=== PATIENT | female | born 1955 | race Caucasian/White ===

== ENCOUNTER 2020-09-01 12:02 | Inpatient (IN) | payer OTHER, SELFPAY ==
--- NOTE | 2020-09-01 13:11 | RAD ---
PORTABLE CHEST: Date: 09/01/2020 HISTORY: Chest pain. FINDINGS: Lung hadley appear clear. No infiltrate or vascular congestion. Heart and mediastinum unremarkable. There appears to be external artifact overlying the left upper lung and scapula. IMPRESSION: No acute process identified. POS: [facility]
[2020-09-01 13:43] LABS: #Eosinphils 0.2 thou/uL (0.0-0.7); #Lymphocytes 2.2 thou/uL (1.20-3.40); #Monocytes 0.6 thou/uL (0.11-0.59); #Neutrophils 5.9 thou/uL (1.40-6.50); %Basophils 0.5 % (0.0-1.0); %Eosinophils 2.8 % (0.0-10.0); %Lymphocytes 24.7 % (21.0-51.0); %Monocytes 6.3 % (0.0-10.0); %Neutrophils 65.7 % (42.0-75.0); Hemoglobin 12.3 g/dL (12.0-16.0); Mean Corpuscular HGB CONC 32.5 g/dL (32.0-36.0); Mean Corpuscular Hemoglobin 28.5 pg (27.0-31.0); Mean Corpuscular Volume 87.7 fL (78.0-98.0); Mean Platelet Volume 8.5 fL (7.4-10.4); Platelet Count 273 thou/uL (130-400); RBC Distribution Width 13.2 % (11.5-14.5); White Blood Cell (WBC) Count 8.9 thou/uL (4.8-10.8)
[2020-09-01 14:00] LABS: ALT (SGPT) 14 U/L (8-55); AST (SGOT) 15 U/L (5-34); Albumin 3.8 g/dL (3.4-4.8); Alkaline Phosphatase 121 U/L (40-110); Anion Gap 11 mmol/L (10-20); BUN (Urea Nitrogen) 15 mg/dL (9.8-20.1); Bilirubin, Total 0.4 mg/dL (0.2-1.2); CK (CPK) 51 U/L (29-168); Calc. Creatinine Clearance 0 mL/min (70-130); Calcium 8.9 mg/dL (7.8-10.44); Carbon Dioxide 31 mmol/L (23-31); Chloride 103 mmol/L (98-107); Estimated GFR-MDRD 68; Globulin 3.6 g/dL (2.4-3.5); Glucose 168 mg/dL (80-115); Lipase 25 U/L (8-78); Potassium 3.6 mmol/L (3.5-5.1); Protein, Total 7.4 g/dL (6.0-8.3); Sodium 141 mmol/L (136-145)
[2020-09-01] MEDS ORDERED: Iopamidol-370 76% 500 ML 1 ML ONE (14:39)
--- NOTE | 2020-09-01 15:29 | CT ---
CTA CHEST WITH CONTRAST: Date: 09/01/2020 Axial tomograms obtained following angio protocol with multiplanar reconstruction and 3D postprocessi ng. INDICATION: Chest pain. Assess for pulmonary embolus. FINDINGS: Pulmonary arteries show adequate enhancement. No evidence of pulmonary embolus. Thoracic aorta i8s un remarkable with no evidence of dissection or aneurysm. Mediastinum unremarkable with no evidence of a denopathy. Nonspecific mediastinal and hilar lymph nodes are noted. The lung hadley appear clear. No infiltrate or effusion. Osseous structures unremarkable. Images through the upper abdomen partially image the gallbladder and there is low density and heterog eneity within the visualized gallbladder lumen suggesting gallstones. Consider evaluation with gallbl adder ultrasound. IMPRESSION: 1. No evidence of pulmonary embolus. 2. No acute lung process. 3. Small fixed sliding diaphragmatic hernia. 4. Question gallstones. Correlate with gallbladder ultrasound. POS: [facility]
[2020-09-01] MEDS ORDERED: Nitroglycerin 0.4 MG TAB (25 Tab Bottle) SL PRN (18:16)
--- NOTE | 2020-09-01 18:31 | PDOC.HHP ---
Hospitalist HPI - History of Present Illness Chest pain History of Present Illness: Patient is a 64-year-old female who reports that she has had frequent muscle cramps all over her body including occasionally in her chest. She has been using some Epson salt in her bath a couple times a week and that is helped. She reports about 10 days ago she was experiencing substantial stress. She is the oldest of 9 children. She has had 6 family members within this year that who have had cancer. 2 of them had . In addition to that one of her sisters was attending one of the funerals and had a heart attack and she about 10 days later. Her son-in-law is one of the recent diagnoses of cancer. He r ecently had to be rushed to the hospital. In the midst of all the stress the patient was here in town and experienced a crushing type of central chest pain. She called her who called 911. While she waited her symptoms spontaneously and completely resolved in 8 to 10 minutes. With that episode she did have fairly severe shortness of breath but that completely resolved as well. They canceled the ambulance but she stayed around town for about 3 more hours to ensure she was doing okay and when she was convinced she was she will return home since then she has been having some intermittent chest pain that last for an hour or 2 she has occasional pain in her left arm and occasionally in the left neck area. They do not always occur at the same time. Now she feels a little bit winded at times but not specifically short of breath intermittently. She feels mildly lightheaded she denies any nausea or sweats. She reported today because she is having more anxiety because of a strong family history of heart disease. She has had 3 siblings of the 9 who have of myocardial infarction. Her children are concerned about this and that is actually adding to her stress even more. Hospitalist ROS - Review of Systems Constitutional: denies: fever, chills Respiratory: reports: SOB with excertion. denies: cough, shortness of breath Cardiovascular: denies: chest pain Gastrointestinal: denies: nausea, vomiting, abdominal pain, diarrhea, con stipation All other systems reviewed; all pertinent +/- noted in HPI/Subj - Medication Medications: None Hospitalist History - Past Medical History Cardiac: reports: HTN (Not treated and not formally diagnosed.) - Past Surgical History Past Surgical History: reports: Appendectomy (Had exploratory laparotomy while she was due to abdominal pain. There was no finding so they did an appendectomy.), (X3) - Family History Family History: reports: cancer (Mother) - Social History Smoking Status: Never smoker Alcohol: reports: None Drugs: reports: none - Exam General Appearance: NAD, awake alert General - other findings: Obese Heart: RRR, no murmur, no gallops, no rubs, normal peripheral pulses Respiratory: CTAB, no wheezes, no rales, no ronchi, normal chest expansion, no tachypnea, normal percussion Gastrointestinal: soft, non-tender, non-distended, normal bowel sounds, no palpable masses, no hepatomegaly, no splenomegaly, no bruit Extremities: no cyanosis, no clubbing, no edema Skin: normal turgor, no lesions, no rashes Neurological: cranial nerve grossly intact, normal sensation to touch, no weakness, no focal deficits, no new deficit Musculoskeletal: normal tone, normal strength, no muscle wasting Psychiatric: normal affect, normal behavior, A&O x 3 Hospitalist Results - Labs Result Diagrams: 09/01/20 13:19 09/01/20 13:19 Lab results: WBC 8.9 thou/uL (4.8-10.8) 09/01/20 13:19 Hgb 12.3 g/dL (12.0-16.0) 09/01/20 13:19 Hct 37.7 % (36.0-47.0) 09/01/20 13:19 MCV 87.7 fL (78.0-98.0) 09/01/20 13:19 Plt Count 273 thou/uL (130-400) 09/01/20 13:19 Neutrophils % 65.7 % (42.0-75.0) 09/01/20 13:19 Sodium 141 mmol/L (136-145) 09/01/20 13:19 Potassium 3.6 mmol/L (3.5-5.1) 09/01/20 13:19 Chloride 103 mmol/L (98-107) 09/01/20 13:19 Carbon Dioxide 31 mmol/L (23-31) 09/01/20 13:19 BUN 15 mg/dL (9.8-20.1) 09/01/20 13:19 Creatinine 0.84 mg/dL (0.6-1.1) 09/01/20 13:19 Glucose 168 mg/dL (80-115) H 09/01/20 13:19 Calcium 8.9 mg/dL (7.8-10.44) 09/01/20 13:19 Total Bilirubin 0.4 mg/dL (0.2-1.2) 09/01/20 13:19 AST 15 U/L (5-34) 09/01/20 13:19 ALT 14 U/L (8-55) 09/01/20 13:19 Alkaline Phosphatase 121 U/L (40-110) H 09/01/20 13:19 Creatine Kinase 51 U/L (29-168) 09/01/20 13:19 Troponin I Less than 0.010 ng/mL (< 0.028) 09/01/20 13:19 Serum Total Protein 7.4 g/dL (6.0-8.3) 09/01/20 13:19 Albumin 3.8 g/dL (3.4-4.8) 09/01/20 13:19 Lipase 25 U/L (8-78) 09/01/20 13:19 - EKG Interpretation EK, with no ectopics, Conduction normal, ST segments normal, [place] normal, Nonspecific T wave changes. - Radiology Interpretation CT scan - chest Status: report reviewed by me Additional Comment: IMPRESSION: 1. No evidence of pulmonary embolus. 2. No acute lung process. 3. Small fixed sliding diaphragmatic hernia. 4. Question gallstones. Correlate with gallbladder ultrasound. Hospitalist H&P A/P - Problem (1) Chest pain Code(s): R07.9 - CHEST PAIN, UNSPECIFIED Status: Acute (2) Gallstones Code(s): K80.20 - CALCULUS OF GALLBLADDER W/O CHOLECYSTITIS W/O OBSTRUCTION Status: Acute (3) Hypertension Code(s): I10 - ESSENTIAL (PRIMARY) HYPERTENSION Status: Acute - Plan Plan: Chest pain: Patient has family history of significant coronary artery disease. EKG is nonischemic but nonspecific. Initial work-up otherwise negative. Placed in observation. Telemetry. Serial troponins. Nuclear medicine stress test in the morning assuming her troponins remain negative. Possible this could be related to gallstones however the most important work-up needs to be the cardiac initially. If that is negative may consider gallbladder ultrasound. Stones: Likely benign. CT did not show significant evidence of obstruction or inflammation. Could likely have outpatient work-up if her stress test is negative. Hypertension: Patient believes her blood pressures been routinely high but she has not been formally diagnosed and takes no medicines. We will continue to monitor while she is here and initiate medicines as needed.
[2020-09-01 19:33] LABS: Troponin I Less than 0.010 ng/mL (< 0.028)
[2020-09-01 23:51] LABS: Troponin I Less than 0.010 ng/mL (< 0.028)
[2020-09-02 04:28] LABS: SARS-CoV-2 MS2 Positive; SARS-CoV-2 N Gene Negative; SARS-CoV-2 S Gene Negative; SARS-CoV-2 by NAA Not Detected (NotDetected); SARS-CoV-2 orf1ab Negative
[2020-09-02 04:56] LABS: Cardiac Risk 3.2 (Less than 4.5)
[2020-09-02] MEDS: Aspirin 325 mg Enteric Coated Tablet PO SCH (07:44)
[2020-09-02] MEDS ORDERED: FLU VACC QS2020-21(6MOS UP)/PF 60 MCG/0.5 ML SYRINGE IM ONE (09:00)
[2020-09-02 10:16] VITALS: BMI 41.5
--- NOTE | 2020-09-02 12:07 | NM ---
Exam: Nuclear medicine cardiac stress with EF and wall motion HISTORY: Chest pain. TECHNIQUE: Patient was administered 28.80 mCi of technetium 99m sestamibi. Stress only images were pe rformed FINDINGS: Homogeneous distribution of the radiotracer left ventricle End-diastolic volume is 86 mL End-systolic volume is 22 mL Cardiac gating: Normal wall motion and thickening. 74% ejection fraction IMPRESSION: 74% ejection fraction. Homogeneous distribution of the radiotracer in the left ventricle.
--- NOTE | 2020-09-02 15:08 | PDOC.HOSPP ---
- Objective Vital Signs & Weight: Vital Signs (12 hours) Temp Pulse Resp BP BP Pulse Ox 09/02/20 12:17 97.7 F 77 16 127/58 L 98 09/02/20 07:36 97.9 F 70 16 116/56 L 96 09/02/20 04:00 97.6 F 75 18 140/60 99 Weight Admit Weight 265 lb Weight 265 lb I&O: 09/01/20 09/02/20 09/03/20 06:59 06:59 06:59 Intake Total 880 Output Total 500 Balance 380 Result Diagrams: 09/01/20 13:19 09/01/20 13:19 Hospitalist ROS - Medication Medications: Active Medications Generic Name Dose Route Start Last Admin Trade Name Freq PRN Reason Stop Dose Admin Aspirin 325 mg 09/02/20 09:00 09/02/20 07:44 Aspirin 325 Mg Enteric Coated Tablet PO 325 mg DAILY LILIANA Administration Hosp A/P - Plan ) Chest pain Code(s): R07.9 - CHEST PAIN, UNSPECIFIED Status: Acute (2) Gallstones Code(s): K80.20 - CALCULUS OF GALLBLADDER W/O CHOLECYSTITIS W/O OBSTRUCTION Status: Acute (3) Hypertension Code(s): I10 - ESSENTIAL (PRIMARY) HYPERTENSION Status: Acute -Troponin x2 - Her LDL 102 Nuclear medicine stress test negative. -Patient has a family history of vascular disease and her sister recently at the age of 40 with FL. -As patient has ongoing chest pain, further evaluation is required. -We will request a cardiology evaluation. Metabolic syndrome -Patient with obesity and the LDL of 102 -We will check A1c TSH, fasting lipid panel and start her on a low-dose statin and adjust a based on the LDL lipid level CT chest negative for PE however shows diaphragmatic hiatal hernia -Symptomatic management with the PPI. Elevated alkaline phosphatase with normal transaminases - her chest pain is bilateral underneath her breast and may have related to diaphragmatic hernia versus abnormal presentation of cholecystitis as her alkaline phosphatase is elevated. -We will get a right upper quadrant gallbladder ultrasound. Obesity -Check A1c and TSH given her obesity
[2020-09-02] MEDS: traMADol HCl 50 MG TAB PO PRN (22:37)
[2020-09-02] MEDS: Sodium Chloride 0.9% 1,000 ML IV SCH (22:40)
--- NOTE | 2020-09-03 07:35 | ULT ---
Exam: Right upper quadrant ultrasound: HISTORY: Abdominal pain COMPARISON: None FINDINGS: Visualized liver:Coarse heterogeneous liver echogenicity evidence for nonspecific hepatic parenchymal process. Gallbladder:Multiple gallstones without overt pericholecystic fluid. Common bile duct:Within normal limits. The visualized pancreas and right kidney are unremarkable. No evidence for abscess or abnormal fluid collection in the right upper quadrant. IMPRESSION: Multiple gallstones. Coarse heterogeneous liver echogenicity.
[2020-09-03] MEDS: Aspirin 325 mg Enteric Coated Tablet PO SCH (08:12)
--- NOTE | 2020-09-03 09:39 | CON ---
DATE OF CONSULTATION: 09/02/2020 REASON FOR CONSULTATION: Chest pain, negative cardiac stress test. HISTORY OF PRESENT ILLNESS: Ms. Mary Garsia is a very pleasant 64-year-old female presenting with chest pain. The patient's history is somewhat atypical. The patient has been under a lot of stress lately. Apparently, she has had multiple deaths in the family this year. The patient comes in with chest pain across the anterior chest. The patient has negative EKG, negative cardiac enzymes. came back negative. The patient on admission was found to have a . She does have some chronic off and on but more of like heartburn or indigestion. There is no . The patient is a very healthy female. She has no history of hypertension, diabetes, heart disease, lung disease. There is no history of any chronic lung disease. The patient has had what she calls a anthony horse or . This has been going on for a while. Usually bathtub with some . The lower chest and almost like there is somebody crushing her, . She had no dyspnea. The patient had no chest pain on exertion. Also, chest pain does not occur when she is eating. She is very active and does get around doing a lot of things. She never had any chest pain history that she fell down a couple of months ago on a concrete floor and landed on her back. She was having soreness and pain for several days afterwards. Her bowel moves regularly. There is no history of any hematochezia . She had ALLERGIES: SOCIAL HISTORY: She does not drink alcohol. MEDICAL ILLNESSES: Obesity, PAST SURGICAL HISTORY: Previous appendectomy when she was . Chest pain and abdominal pain and had laparotomy and had incidental appendectomy. FAMILY HISTORY: of heart attack recently. , breast cancer. breast cancer. One brother had colon cancer. Another brother had heart attack diagnosed with cancer lately. MEDICATIONS: Medication list reviewed. REVIEW OF SYSTEMS: A 10-point system review: CONSTITUTIONAL: No history of any weight loss. No fever or chills. No history of any poor exercise tolerance. HEENT: No chronic headache. No syncope. No TIA. No diplopia. No impaired vision. No hearing loss. No nose bleed. No rhinorrhea. No sore throat or dysphagia. NECK: No stiffness. HEART: Chest pain. LUNGS: No chronic coughing . GI: No abdominal pain. No nausea or vomiting. Bowel movement . Does have occasional acid reflux and some heartburn. No dysphagia. PHYSICAL EXAMINATION: GENERAL: She appears . She is a good historian. She is awake, alert, oriented VITAL SIGNS: Afebrile. NECK: CARDIOVASCULAR: CHEST: Lungs are clear to auscultation. ABDOMEN: Soft and nondistended. Minimally tender right up in the epigastric area. There is no rebound or guarding. No organomegaly. EXTREMITIES: LABORATORY DATA: . Chemistry panel is pretty normal. Glucose is . AST 15, ALT 14. Albumin 3.8. Triglycerides 97, CLINICAL IMPRESSION: 1. A 64-year-old obese, female with chest pain. The pain is kind of more chronic than acute. Her cardiac workup is negative. Cardiology consultation is pending. She does have occasional . 2. Gallstones on CAT scan, probably .. 3. . RECOMMENDATIONS: 1. Will await cardiac input. . Job ID: [id number]
[2020-09-03 13:54] LABS: Hemoglobin A1c 6.4 % (4.0-6.0)
[2020-09-03 14:00] LABS: ALT (SGPT) 13 U/L (8-55); AST (SGOT) 14 U/L (5-34); Albumin 3.7 g/dL (3.4-4.8); Alkaline Phosphatase 111 U/L (40-110); Bilirubin, Direct 0.2 mg/dL (0.1-0.3); Bilirubin, Total 0.4 mg/dL (0.2-1.2); Protein, Total 7.4 g/dL (6.0-8.3)
--- NOTE | 2020-09-03 14:00 | PRG ---
DATE OF SERVICE: 09/03/2020 SUBJECTIVE: This is a 64-year-old female, hospitalized with chest pain and negative cardiac workup. She had a chemical stress test which came back negative. She has family history of coronary artery disease. A cardiology evaluation is pending. She was seen by me because of chest pain with negative cardiac workup. The patient denies abdominal pain, nausea, or vomiting. Her pain is predominantly across the lower chest like a heaviness or like a squeezing of chest. She had abdominal sonogram which showed gallstone; however, she has no right upper quadrant pain or nausea or vomiting. Today, she is feeling better. PHYSICAL EXAMINATION: GENERAL: She is obese, appears comfortable, in no distress. VITAL SIGNS: Stable. Temperature 97.8 degrees Fahrenheit, pulse is 71, blood pressure is 156/69. CARDIOVASCULAR SYSTEM: Normal heart sounds. LUNGS: Clear to auscultation. ABDOMEN: Soft. Abdomen is nondistended. Abdomen is mildly tender over the epigastric area. No rebound or guarding. CLINICAL IMPRESSION: 1. Chest pain, etiology unclear. Negative cardiac stress testing. 2. Obesity. 3. Gallstones, most likely asymptomatic as she has no abdominal pain, nausea, or vomiting. RECOMMENDATIONS: 1. Await cardiology input. 2. May consider EGD. Job ID: [id number]
[2020-09-03 14:01] LABS: Cardiac Risk 3.3 (Less than 4.5)
--- NOTE | 2020-09-03 14:08 | ULT ---
Venous duplex sonogram bilateral lower extremity HISTORY: Bilateral leg pain and edema. FINDINGS: Each common femoral vein and greater saphenous junction were evaluated along with each femo ral, deep femoral, popliteal, and posterior tibial vein. There is good color and spectral Doppler flow, compression, and augmentation. IMPRESSION : Normal exam.
--- NOTE | 2020-09-03 17:29 | EKG ---
Test Reason : Blood Pressure : / mmHG Vent. Rate : 088 BPM Atrial Rate : 088 BPM P-R Int : 152 ms QRS Dur : 072 ms QT Int : 362 ms P-R-T Axes : 050 015 051 degrees QTc Int : 438 ms Normal sinus rhythm Cannot rule out Anterior infarct , age undetermined Abnormal ECG Confirmed by FERNANDA Romero, LENO ([id number]), staff editor KATIE YORK ([id number]) on 09/03/2020 5:29:39 PM Referred By: Confirmed By:LENO MICHAEL M.D.
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
[2020-09-03] MEDS ORDERED: Calcium Carbonate 500 MG ChewTAB PO PRN (19:21)
--- NOTE | 2020-09-03 20:01 | CON ---
DATE OF CONSULTATION: 09/03/2020 REASON FOR CONSULTATION: Chest pain and pressure. HISTORY OF PRESENT ILLNESS: Ms. Mary Garsia is a 64-year-old woman. The patient has been having chest pain and pressure for about 2 to 3 weeks. She had a severe episode over a week ago. It was in the middle of her chest, went all the way across her chest, feeling things were pressing in on her, gradually eased up, and she felt very fatigued and weak after that. She has been having these recurrent episodes similar to this. She has had a strong family history of heart disease. She has had multiple younger siblings with heart disease. PAST HISTORY: She has a history of "borderline blood sugars." She has not had a history of diabetes. She has not been hypertensive. No tobacco. REVIEW OF SYSTEMS: CONSTITUTIONAL: No significant weight gain or loss. VISION: No changes. HEARING: No changes. PULMONARY: No cough or wheezing. GASTROINTESTINAL: No nausea, vomiting, or diarrhea. SKIN: No rashes. NEUROLOGIC: No unilateral weakness or numbness. PSYCHIATRIC: No unusual depression or anxiety. PHYSICAL EXAMINATION: GENERAL: This is a pleasant 64-year-old woman, in no distress. VITAL SIGNS: Blood pressure 140/60, pulse 70. LUNGS: Clear. CARDIAC: Normal S1, normal S2. ABDOMEN: Soft, nontender. She is very obese. EXTREMITIES: No clubbing or cyanosis. There is no edema. Her BMI is 41.5. LABORATORY DATA: Her troponin levels are negative. LDL cholesterol is 99. EKG unremarkable. Stress test was unremarkable. ASSESSMENT: Chest pain and pressure, very suspicious for angina, even despite normal stress test, the patient remains very concerned, and as her symptoms are very suspicious for angina, we discussed options including cardiac catheterization is being the most definitive test. Discussed risk of stroke, heart attack, iodine allergy, loss of blood supply to leg or kidney, stent thrombosis, stent restenosis, emergency surgery. The patient understands and wishes to proceed. We will arrange for this on Saturday. Job ID: [id number]
[2020-09-03] MEDS: traMADol HCl 50 MG TAB PO PRN (21:49)
[2020-09-04] MEDS: Sodium Chloride 0.9% 1,000 ML IV SCH (01:55)
[2020-09-04] MEDS: Aspirin 325 mg Enteric Coated Tablet PO SCH (07:59)
[2020-09-04 10:01] LABS: ALT (SGPT) 14 U/L (8-55); AST (SGOT) 16 U/L (5-34); Albumin 3.7 g/dL (3.4-4.8); Alkaline Phosphatase 118 U/L (40-110); Bilirubin, Direct 0.2 mg/dL (0.1-0.3); Bilirubin, Total 0.5 mg/dL (0.2-1.2); Protein, Total 7.3 g/dL (6.0-8.3)
--- NOTE | 2020-09-04 15:18 | PDOC.HOSPP ---
- Subjective Encounter Date: 09/04/20 Encounter Time: 11:30 Subjective: F/u: chest pain/abdominal pain The patient still has intermittent chest pain in the middle of her chest. She also complains of pain down both arms. She reports occasional pain on the left side of her neck . She says she did not want to take nitroglycerin or any pepcid even though it was offered. SHe reports feeling a lump in her breast bone. She denies abdominal pain, nausea and vomiting The patient reports that she fell a few weeks ago on her back and was unable to get up for several hours. She reports history of ruptured discs in her back in the past. She is ambulating without pain - Objective Vital Signs & Weight: Vital Signs (12 hours) Temp Pulse Resp BP Pulse Ox 09/04/20 14:46 71 137/60 94 L 09/04/20 12:00 97.8 F 69 18 137/62 94 L 09/04/20 07:15 97.2 F L 66 16 145/63 H 94 L 09/04/20 04:59 71 16 129/61 94 L Weight Admit Weight 265 lb Weight 265 lb I&O: 09/03/20 09/04/20 09/05/20 06:59 06:59 06:59 Intake Total 1380 3200 Output Total 400 900 Balance 980 2300 Result Diagrams: 09/01/20 13:19 09/01/20 13:19 Hospitalist ROS - Review of Systems Constitutional: denies: fever, chills - Medication Medications: Active Medications Generic Name Dose Route Start Last Admin Trade Name Freq PRN Reason Stop Dose Admin Aspirin 325 mg 09/02/20 09:00 09/04/20 07:59 Aspirin 325 Mg Enteric Coated Tablet PO 325 mg DAILY LILIANA Administration Sodium Chloride 1,000 mls @ 45 mls/hr 09/02/20 22:00 09/04/20 01:55 Normal Saline 0.9% IV 09/05/20 05:59 1,000 mls .[id number] LILIANA Administration Nitroglycerin 0.4 mg 09/01/20 18:16 09/04/20 14:39 Nitroglycerin 0.4 Mg Tab (25 Tab Bottle) SL 1 tab Q5MIN PRN Administration Chest Pain Pantoprazole Sodium 40 mg 09/03/20 09:00 09/04/20 07:59 Pantoprazole 40 Mg Tab PO 40 mg DAILY LILIANA Administration Tramadol HCl 50 mg 09/02/20 19:54 09/03/20 21:49 Tramadol Hcl 50 Mg Tab PO 50 mg Q6H PRN Administration Pain - Exam General Appearance: NAD, awake alert Eye: anicteric sclera ENT: normocephalic atraumatic, no oropharyngeal lesions Neck: no JVD Heart: RRR, no murmur, no gallops, no rubs Respiratory: CTAB, no wheezes, no rales, no ronchi Gastrointestinal: soft, non-tender, non-distended, normal bowel sounds Gastrointestinal - other findings: mild lump in beneath breast bone, unclear if hernia? Extremities: no cyanosis, no clubbing, no edema Skin: normal turgor, no lesions, no rashes Neurological: cranial nerve grossly intact, normal sensation to touch, no weakness Musculoskeletal - other findings: patient denies pain while lifting up his arms Psychiatric: normal affect, normal behavior, A&O x 3 Hosp A/P - Plan CTA: no PE. Sliding diaphragmatic hernia. Gallstones This is a 64 year old female who presented with chest pain Chest pain - trop negative x 3. Nuclear stress test negative - cardiology was consulted and will perform a cath tomorrow - continue aspirin, statin, nitro prn. Will add metoprolol as well Neck pain and arm pain - angina vs radiculopathy - Will order MRI cervical and thoracic spine given history of ruptured discs in the past and recent fall on her back Abdominal pain - resolving - US showed gallstones. ALP elevated, slightly trending up - GI plans to do endoscopy once cardiology clears her . Will increase protonix to 40 mg bid Borderline diabetes - A1C 6.4. Encourage weight loss GERD - continue tums prn
[2020-09-04] MEDS ORDERED: Metoprolol Tartrate 25 MG TAB PO SCH (15:30)
[2020-09-04] MEDS ORDERED: Communication Order-Pharmacy FS SCH (18:00)
[2020-09-04] MEDS ORDERED: Atorvastatin Calcium 20 MG TAB PO SCH (21:00)
[2020-09-04] MEDS: Metoprolol Tartrate 25 MG TAB PO SCH (21:54)
[2020-09-05] MEDS: Sodium Chloride 0.9% 1,000 ML IV SCH ×3 (00:48→17:12)
[2020-09-05] MEDS: traMADol HCl 50 MG TAB PO PRN (01:31)
[2020-09-05] MEDS: Metoprolol Tartrate 25 MG TAB PO SCH ×2 (05:34→21:02)
[2020-09-05] MEDS: Aspirin 325 mg Enteric Coated Tablet PO SCH (05:34)
[2020-09-05] MEDS ORDERED: Diazepam 5 MG TAB PO SCH (06:00)
[2020-09-05] MEDS ORDERED: Heparin 10,000 UNITS/ 10 ML VIAL ONE (07:53)
[2020-09-05] MEDS ORDERED: Midazolam HCl 2 mg/2 ml Vial ONE (08:59)
[2020-09-05] MEDS ORDERED: Fentanyl 100 MCG/2 ML VIAL ONE (08:59)
[2020-09-05] MEDS ORDERED: Sodium Chloride 0.9% 200 ML IV PRN (09:45)
[2020-09-05] MEDS ORDERED: Iopamidol 370 76% 100 ML VIAL ONE (09:46)
[2020-09-05 12:35] LABS: ALT (SGPT) 17 U/L (8-55); AST (SGOT) 17 U/L (5-34); Albumin 3.6 g/dL (3.4-4.8); Alkaline Phosphatase 117 U/L (40-110); Bilirubin, Direct 0.2 mg/dL (0.1-0.3); Bilirubin, Total 0.4 mg/dL (0.2-1.2); Protein, Total 7.1 g/dL (6.0-8.3)
--- NOTE | 2020-09-05 15:42 | PRG ---
DATE OF SERVICE: 09/05/2020 Ms. Garsia underwent cardiac catheterization today. She had about 30% plaque in her LAD, otherwise normal. This is not the etiology of her chest pain. The patient has been advised to take a statin, Crestor 20 mg a day, aspirin 81 mg a day. From a cardiac standpoint, she can be released home. Job ID: [id number]
--- NOTE | 2020-09-05 16:29 | MRI ---
MRI cervical spine noncontrast: 09/05/2020 HISTORY: 64-year-old female with cervical radiculopathy after fall COMPARISON: No prior MRI or CT of C-spine available. FINDINGS: All images are degraded by patient motion, some sequences worse than others. Cervical spinal cord is normal in size. No evidence of intramedullary hemorrhage on the gradient echo axial sequence. Difficult to evaluate for intramedullary edema or other intramedullary signal abnormality because of the motion artifact. Vertebral body heights are maintained. Difficult to evaluate for subtle bone marrow signal abnormality including bone contusion because of the motion degradation of images. Mild disc space narrowing at C6-7. No high-grade disc space narrowing at any level. C1-2: No central stenosis. C2-3: Moderate to severe left facet DJD. No central or neural foraminal stenosis. C3-4: Moderate to severe right and mild to moderate left facet DJD. No central spinal canal stenosis. Small bilateral uncinate process osteophytes. There is right neural foraminal stenosis, the degree to which is difficult to ascertain, but it may be moderate or severe. No high-grade left neural hernan inal stenosis. C4-5: High-grade right facet DJD. Mild disc bulge or broad-based disc protrusion. Mild to moderate ce ntral spinal canal stenosis. Small right and moderate size left uncinate process osteophytes. Bilateral neural foraminal stenosis, mild to moderate. C5-6: High-grade right facet DJD. Normal left facet joint. Moderate size bilateral uncinate process o steophytes. Right neural foraminal stenosis is probably severe. Left neural foraminal stenosis is probably mild to moderate. Furthermore, there is a central, left paracentral, and left lateral focal disc herniation which indents the left anterior surface of the spinal cord and probably impinges on the left C6 nerve root. Moderate central spinal canal stenosis. C6-7: Mild disc bulge. Normal facet joints. Moderate to large bilateral uncinate process osteophytes, left worse than right, resulting in moderate right and severe left neural foraminal stenosis. Moderate central spinal canal stenosis. C7-T1: Moderate left facet DJD. Moderate to severe bilateral neural foraminal stenosis. Mild central spinal canal stenosis. IMPRESSION: 1.) Suboptimal study because of patient motion 2) Cervical spondylosis consisting of multiple levels of high-grade right sided facet osteoarthrosis. 3) multiple levels of high-grade neural foraminal stenosis bilaterally. 4) at C5-6, there is a left-sided disc herniation which probably impinges on the left C6 nerve root.
--- NOTE | 2020-09-05 16:44 | MRI ---
EXAM: MRI Thoracic Spine WO Con PROVIDED CLINICAL HISTORY: Back pain post fall on back. COMPARISON: None FINDINGS: There is mild right convex curvature of the thoracic spine. Spinal cord is normal in signal intensity. Minimal disc bulge is present at the T4-5 level which does result in slight flattening of the anterio r aspect of the spinal cord. No additional significant intradural or extra dural defect is identified. Spinal canal is otherwise patent throughout the thoracic spine. There is no high-grade ne ural foraminal narrowing present. Paravertebral soft tissues have a normal appearance. Normal signal intensity is demonstrated in the b one marrow. There is no vertebral body height loss or evidence of edema within the vertebral bodies on the fluid sensitive sequence. IMPRESSION: 1. Mild degenerative changes in the thoracic spine at the T4-5 level. There is no high-grade central canal or neural foraminal narrowing at any level of the thoracic spine. 2. Mild right convex scoliosis thoracic spine.
[2020-09-05] MEDS ORDERED: Gabapentin 100 MG CAP PO PRN (17:13)
--- NOTE | 2020-09-05 17:14 | PDOC.HOSPP ---
- Subjective Encounter Date: 09/05/20 Encounter Time: 09:00 Subjective: F/U; chest and abdominal pain The patient continues to have intermittent chest pain. Cardiac cath today showed no significant abnormalities. Patient denies abdominal pain, nausea or vomiting. She is very drowsy from receiving fentanyl and Versed from her cath. She also stated she has constant pain in her right arm today but her left arm is slightly better. She had not had the MRI yet when I saw her - Objective Vital Signs & Weight: Vital Signs (12 hours) Temp Pulse Resp BP BP Pulse Ox 09/05/20 15:15 97.7 F 76 16 123/62 98 09/05/20 11:29 98.4 F 69 18 128/60 97 09/05/20 07:35 97.8 F 67 16 141/61 H 94 L Weight Admit Weight 265 lb Weight 265 lb I&O: 09/04/20 09/05/20 09/06/20 06:59 06:59 06:59 Intake Total 3200 1270 Output Total 900 1000 Balance 2300 270 Result Diagrams: 09/01/20 13:19 09/01/20 13:19 Hospitalist ROS - Review of Systems Constitutional: denies: fever, chills - Medication Medications: Active Medications Generic Name Dose Route Start Last Admin Trade Name Freq PRN Reason Stop Dose Admin Metoprolol Tartrate 12.5 mg 09/04/20 21:00 09/05/20 05:34 Metoprolol Tartrate 25 Mg Tab PO 12.5 mg BID LILIANA Administration Nitroglycerin 0.4 mg 09/01/20 18:16 09/04/20 14:39 Nitroglycerin 0.4 Mg Tab (25 Tab Bottle) SL 1 tab Q5MIN PRN Administration Chest Pain Pantoprazole Sodium 40 mg 09/04/20 21:00 09/05/20 05:35 Pantoprazole 40 Mg Tab PO 40 mg BID LILIANA Administration Tramadol HCl 50 mg 09/02/20 19:54 09/05/20 01:31 Tramadol Hcl 50 Mg Tab PO 50 mg Q6H PRN Administration Pain - Exam General Appearance: NAD, awake alert Eye: PERRL, anicteric sclera ENT: normocephalic atraumatic, no oropharyngeal lesions Neck: no JVD Heart: RRR, no murmur, no gallops, no rubs Respiratory: CTAB, no wheezes, no rales, no ronchi Gastrointestinal: soft, non-tender, non-distended, normal bowel sounds Extremities: no cyanosis, no clubbing, no edema Skin: normal turgor, no lesions, no rashes Neurological: cranial nerve grossly intact, normal sensation to touch, no weakness Musculoskeletal: normal tone, normal strength, no muscle wasting Hosp A/P - Plan CTA: no PE. Sliding diaphragmatic hernia. Gallstones MRI cervical spine: Multiple levels of high-grade right-sided facet osteoarthrosis. High-grade neuroforaminal stenosis bilaterally. Left-sided disc herniation impinging on the left C6 nerve root MRI thoracic spine: Mild degenerative changes in thoracic spine T4-T5 level This is a 64 year old female who presented with chest pain Chest pain - possibly secondary to GERD? - cath showed insignificant CAD today , 20% proximal LAD and 10% RCA. - trop negative x 3. Nuclear stress test negative. Continue aspirin and statin. Continue protonix 40 mg po bid Acute encephalopathy - likely from sedation - will continue to monitor , and re-eval tomorrow High grade Cervical Stenosis and left sided disc herniation - noted on MRI cervical spine. Patient reports arm pain and neck pain after a fall few weeks ago. Will consult neurosurgery - will order PT evaluation Abdominal pain - resolved - US showed gallstones. ALP stable at 117, tolerating diet - GI was consulted, no plans to do endoscopy Borderline diabetes - A1C 6.4. Encourage weight loss GERD - continue tums prn
[2020-09-05] MEDS ORDERED: Rosuvastatin 20 MG TAB PO SCH (21:00)
[2020-09-06] MEDS: Aspirin 325 mg Enteric Coated Tablet PO SCH ×2 (09:28→09:46)
[2020-09-06] MEDS: Metoprolol Tartrate 25 MG TAB PO SCH (09:28)
--- NOTE | 2020-09-06 10:09 | CON ---
DATE OF CONSULTATION: 09/06/2020 HISTORY OF PRESENT ILLNESS: The patient is a 64-year-old female who reports she is otherwise healthy, who was admitted to the medicine team for evaluation of chest and left arm pain. The patient reports she developed intermittent chest pain approximately 10 days ago. A week later, she developed intermittent left arm pain. She has been evaluated by the Medical Service as well as Cardiology with no clear etiology for her symptoms. She was also evaluated with MRI of the cervical and thoracic spine. It was somewhat poor quality due to motion artifact, but it does appear she has a left-sided C5-C6 disk extrusion. Neurosurgery was consulted for additional opinion. I visited the patient at the bedside. She reports she is feeling much better. She denies any weakness or difficulty ambulating. PAST MEDICAL HISTORY: Otherwise, healthy. Denies any prior medical problems. PAST SURGICAL HISTORY: Appendectomy, . FAMILY HISTORY: Noncontributory. SOCIAL HISTORY: She lives at home. She does not smoke, drink, or use any drugs. REVIEW OF SYSTEMS: Per HPI. PHYSICAL EXAMINATION: VITAL SIGNS: Stable. CONSTITUTIONAL: Awake and alert, in no acute distress. HEENT: Head, normocephalic and atraumatic. Eyes, PERRLA. Extraocular movements intact. ENT; pink, intact, moist. She has normal voice. NECK: Nontender. Free active range of motion. No meningismus. No nuchal rigidity. CARDIAC: Regular rhythm. PULMONARY: Symmetric chest expansion. No evidence of dyspnea. MUSCULOSKELETAL: Free active range of motion of all extremities. No focal motor weakness. No reflex asymmetry. NEUROLOGIC: A and O x4. No focal neurologic deficits are appreciated. ASSESSMENT AND PLAN: Cervical degenerative disk disease, left C6 radiculopathy. PLAN: The patient has had some intermittent chest and left arm pain and this may be from a small left-sided disk extrusion at C5-C6. The patient is improving during her admission course and has no neurologic deficits. We are recommending treatment with a Medrol dose pack and any pain medicines and we will arrange followup in our office outpatient to reassess her progress. No acute neurosurgical intervention planned in the immediate future. Job ID: [id number]
[2020-09-06 17:13] VITALS: BP 126/57; TEMP 98.7
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
--- NOTE | 2020-09-08 05:12 | PQF ---
CLINICAL DOCUMENTATION CLARIFICATION FORM: Dear : Nikole Mcelroy Date / Time: 09/08/2020510 Please exercise your independent, professional judgment in responding to the clarification form. Clinical indicators are provided on the bottom of this form for your review Based on your clinical judgment, can you please specify the etiology of patients encephalopathy? Please check appropriate box(es): Encephalopathy: Etiology: [ ] Metabolic [ ] Toxic [X ] Drug induced: [ ] Unspecified [ ] Other (please specify) [ ] Unable to determine Physician Signature: Date/Time: For continuity of documentation, please document condition throughout progress notes and discharge summary. Thank You. To be completed by CDI/Coding staff for physician review: Present Clinical Indicators - Signs / Symptoms / Labs Results and Location in Medical Record [X] BP 123/62, Pulse 76, Resp 16, Temp 97.7 Vital signs 09/05 [X] She is very drowsy from receiving fentanyl and Verse from her Cath HPN p1 09/05 Dr Mcelroy [X] Acute Encephlopathy likely from sedation HPN p3 09/05 Dr Mcelroy [X] She feels mildly lightheaded HPN p1 09/05 Dr Mcelroy Present Risk Factors Results and Location in Medical Record [X] 64 year-old Female HPN p1 09/05 Dr Mcelroy [X] Bordeline DM HPN p3 09/05 Dr Mcelroy [X] Obesity HPN p3 09/05 Dr Mcelroy [X] HTN HPN p2 09/05 Dr Mcelroy Present Treatments Results and Location in Medical Record [X] IVF NS 1L DEC 22 [X] Neuro monitoring HPN p3 09/05 Dr Mcelroy CDS/Handwriting Expert Signature: Zoya Winters Phone #: ext [phone] Date/Time: 09/08/2020510 This is a permanent part of the Medical Record [facility]
== END 2020-09-06 18:20 | disposition home or self-care (01) | DRG 391 ==
LOC: ERS 12:02 → ERHOLD 16:56 → INTOOBSV 16:56 → 2NO 20:59 → OBSVTOIN 09-03 20:36
PROVIDERS: ADMIT Internal Medicine; ATTEND Internal Medicine
PROC: 4A023N7 Measurement of Cardiac Sampling and Pressure, Left Heart, Percutaneous Approach (ICD-10-PCS; principal; 2020-09-05)
PROC: B2111ZZ Fluoroscopy of Multiple Coronary Arteries using Low Osmolar Contrast (ICD-10-PCS; 2020-09-05)
PROC: B2151ZZ Fluoroscopy of Left Heart using Low Osmolar Contrast (ICD-10-PCS; 2020-09-05)
DX: K21.9 Gastro-esophageal reflux disease without esophagitis (principal); G92 Toxic encephalopathy; Z68.41 Body mass index [BMI] 40.0-44.9, adult; K44.9 Diaphragmatic hernia without obstruction or gangrene; Z20.828 Contact with and (suspected) exposure to other viral communicable diseases; I25.10 Atherosclerotic heart disease of native coronary artery without angina pectoris; K80.80 Other cholelithiasis without obstruction; R73.03 Prediabetes; I10 Essential (primary) hypertension; M50.122 Cervical disc disorder at C5-C6 level with radiculopathy; E66.9 Obesity, unspecified; Z23 Encounter for immunization; Z88.6 Allergy status to analgesic agent; Z88.8 Allergy status to other drugs, medicaments and biological substances; Z90.49 Acquired absence of other specified parts of digestive tract; T40.415A Adverse effect of fentanyl or fentanyl analogs, initial encounter; T42.4X5A Adverse effect of benzodiazepines, initial encounter
CPT/HCPCS: 36415; 36416; 71045; 71275; 72141; 72146; 76705; 76942; 78452; 80053; 80061; 80076; 82550; 83036; 83690; 84484; 85025; 85379; 87635; 90471; 90662; 93005; 93017; 93458; 93970; 94760; 99152; A9500; G0008; G0378; J0153; J1644; J2250; J3010; Q9967; U0003

== ENCOUNTER 2025-09-14 15:17 | Emergency (ER) | payer MEDICARE, SELFPAY ==
[2025-09-14 17:21] LABS: #Basophils Less than 0.03 10x3/uL (0.0-0.2); #Eosinophils 0.06 10x3/uL (0.0-0.7); #Monocytes 0.60 10x3/uL (0.11-0.59); #Neutrophils 8.71 10x3/uL (1.40-6.50); %Basophils 0.2 % (0.0-1.0); %Eosinophils 0.5 % (0.0-10.0); %Lymphocytes 14.3 % (21.0-51.0); %Monocytes 5.5 % (0.0-10.0); %Neutrophils 79.2 % (42.0-75.0); Hematocrit 38.7 % (36.0-47.0); Hemoglobin 12.2 g/dL (12.0-16.0); Mean Corpuscular Hemoglobin 26.5 pg (27.0-31.0); Mean Corpuscular Volume 83.9 fL (78.0-98.0); Platelet Count 316 10x3/uL (130-400); Red Blood Cell (RBC) Count 4.61 mill/uL (4.20-5.40); White Blood Cell (WBC) Count 10.99 10x3/uL (4.8-10.8)
[2025-09-14 17:23] LABS: Glucose, Urine (Dipstick) Negative (Negative); Leukocyte Small (Negative); Protein, Urine (Dipstick) Negative (Neg-Trace); Specific Gravity, Urine 1.015 (1.005-1.030)
[2025-09-14 17:37] LABS: Anion Gap 14 mmol/L (10-20); BUN (Urea Nitrogen) 13 mg/dL (9.8-20.1); Calc. Creatinine Clearance 0 mL/min (70-130); Calcium 9.4 mg/dL (7.8-10.44); Carbon Dioxide 28 mmol/L (23-31); Chloride 100 mmol/L (98-107); Glucose 118 mg/dL (80-115); Potassium 4.2 mmol/L (3.5-5.1); Sodium 138 mmol/L (136-145)
[2025-09-14 17:45] LABS: CAUTI Indications for Culture Dysuria,urgency,freq; WBC/HPF 0-3 HPF (0-3)
[2025-09-14 17:46] LABS: Urine Culture Reflex No No
== END 2025-09-14 19:08 | disposition home or self-care (01) ==
LOC: ERS 15:17
DX: N13.2 Hydronephrosis with renal and ureteral calculous obstruction (principal); I10 Essential (primary) hypertension
CPT/HCPCS: 74176; 80048; 81001; 85025; 96374